=== PATIENT | male | born 1945 | race Caucasian/White ===

== ENCOUNTER 2019-06-19 10:44 | Observation (INO) | payer OTHER, MEDICARE ==
[2019-06-19 10:58] VITALS: BMI 31.1
--- NOTE | 2019-06-19 12:25 | PDOC ---
History of Present Illness - General Chief Complaint: Weakness Stated Complaint: NAUSEOUS/ VOMTITING/LOGAN/WEAKNESS, HAD CP Time Seen by Provider: 06/19/19 12:25 Past History - Past Medical History Allergies/Adverse Reactions: Allergies Allergy/AdvReac Type Severity Reaction Status Date / Time No Known Allergies Allergy Verified 06/19/19 10:58 Home Medications: Ambulatory Orders Atorvastatin Ca [Lipitor] 10 mg PO DAILY 02/18/15 Losartan Potassium 25 mg PO DAILY 09/10/16 Warfarin Sodium 2.5 mg PO DAILY #0 09/11/16 Anemia: No Asthma: No Cancer: No Cardiac Disorders: Yes (pacemaker) CVA: No COPD: No CHF: No Dementia: No Diabetes: No GI Disorders: Yes (tumor) Disorders: Yes (BPH) HTN: Yes Hypercholesterolemia: Yes Liver Disease: No Seizures: No Thyroid Disease: No Other medical history: aneurism - Surgical History Abdominal Surgery: No (colon tumor removed, aneurism) Appendectomy: No Cardiac Surgery: Yes (PACEMAKER INSERTION) Cholecystectomy: No Lung Surgery: No Neurologic Surgery: No Orthopedic Surgery: No - Suicide/Smoking/Psychosocial Hx Smoking Status: No Smoking History: Never smoked Have you smoked in the past 12 months: No Number of Cigarettes Smoked Daily: 0 Information on smoking cessation initiated: No Hx Alcohol Use: No Drug/Substance Use Hx: No Substance Use Type: None Hx Substance Use Treatment: No *Physical Exam - Vital Signs Last Vital Signs Temp Pulse Resp BP Pulse Ox 98.3 F 61 19 147/77 97 06/19/19 10:54 06/19/19 10:54 06/19/19 10:54 06/19/19 10:54 06/19/19 10:54 ED Treatment Course - LABORATORY CBC & Chemistry Diagram: 06/19/19 12:40 06/19/19 12:40 Medical Decision Making - Medical Decision Making 06/19/19 13:22 HPI 73 year old man with a history of BPH, pacemaker, AAA and HLD who presents with 20min episode of dizziness and 2 episodes of nbnb vomiting that occurred at 1000 while sitting on a couch and with spontaneous resolution. The patient has had this same episode of dizziness several months and was evaluated by PCP Dr. Blake without significant findings. The patient had some muscle cramping two days ago but denies any chest pain, shortness of breath, fever, recent illness, abdominal pain, diarrhea or constipation. The patient denies any changes in hearing or vision. At bedside he denies any current dizziness or nausea. He has no other complaints. PMHX: as in hPI Meds: coumadin, (cannot name cholesterol med) ROS GENERAL/CONSTITUTIONAL: No fever or chills. No weakness. HEAD, EYES, EARS, NOSE AND THROAT: No change in vision. No ear pain or discharge. No sore throat. CARDIOVASCULAR: No chest pain or shortness of breath RESPIRATORY: No cough, wheezing, or hemoptysis. GASTROINTESTINAL: No nausea, vomiting, diarrhea or constipation. GENITOURINARY: No dysuria, frequency, or change in urination. MUSCULOSKELETAL: No joint or muscle swelling or pain. No neck or back pain. SKIN: No rash NEUROLOGIC: No headache, vertigo, loss of consciousness, or change in strength/ sensation. ENDOCRINE: No increased thirst. No abnormal weight change HEMATOLOGIC/LYMPHATIC: No anemia, easy bleeding, or history of blood clots. ALLERGIC/IMMUNOLOGIC: No hives or skin allergy. PE GENERAL: Awake, alert, and fully oriented, in no acute distress HEAD: No signs of trauma, normocephalic, atraumatic EYES: PERRLA, EOMI, sclera anicteric, conjunctiva clear ENT: Auricles normal inspection, hearing grossly normal, nares patent, oropharynx clear without exudates. Moist mucosa NECK: Normal ROM, supple, no lymphadenopathy, JVD, or masses LUNGS: No distress, speaks full sentences, clear to auscultation bilaterally HEART: Regular rate and rhythm, normal S1 and S2, no murmurs, rubs or gallops, peripheral pulses normal and equal bilaterally. ABDOMEN: Soft, nontender, normoactive bowel sounds. No guarding, no rebound. No masses EXTREMITIES : Normal inspection, Normal range of motion, no edema. No clubbing or cyanosis. NEUROLOGICAL: Cranial nerves II through XII grossly intact. Normal speech, normal gait, no focal sensorimotor deficits SKIN: Warm, Dry, normal turgor, no rashes or lesions noted MDM 73 year old man with a history of BPH, pacemaker, AAA and HLD who presents with 20min episode of dizziness and 2 episodes of nbnb vomiting that occurred at 1000 while sitting on a couch and with spontaneous resolution. DDX including but not limited to: peripheral vs central vertigo vs intracranial pathology r/o acs W/U: - cbc, cmp, trop, ekg, cxr, head ct TX: - ivf ED Course: Head CT: no acute intracranial hemorrhage, well demarcated hypodense cortical infarct in the posterior aspect of the R cerebellum likely chronic or subacute in nature. labs-wnl CXR: w/o acute process Case discussed with Neurology Patient has pacemaker contraindication for MRI, will need admission for CTA of head and neck Plan for admission Sarnaya Reinoso, PGY2 Emergency Medicine *DC/Admit/Observation/Transfer Diagnosis at time of Disposition: CVA (cerebral vascular accident) - Referrals - Patient Instructions - Post Discharge Activity
[2019-06-19] MEDS ORDERED: SODIUM CHLORIDE 1,000 ML IV SCH (12:30)
[2019-06-19 12:56] LABS: BASO % 0.3 % (0-2.0); EOS % 0.6 % (0-4.5); HEMATOCRIT 45.2 % (35.4-49); HEMOGLOBIN 15.7 GM/dL (11.7-16.9); LYMPH % 10.8 % (8-40); MCH 32.6 pg (25.7-33.7); MCHC 34.7 g/dl (32.0-35.9); MEAN CELL VOLUME 94.1 fl (80-96); MEAN PLT VOLUME 7.9 fl (7.5-11.1); MONO % 5.3 % (3.8-10.2); RBC 4.81 M/mm3 (4.00-5.60); RDW 14.1 % (11.9-15.9); WHITE BLOOD COUNT 7.5 K/mm3 (4.0-10.0)
[2019-06-19 13:05] LABS: PLATELET COUNT 141 K/MM3 (134-434)
[2019-06-19 13:34] LABS: ALBUMIN 3.8 g/dl (3.4-5.0); BILIRUBIN,TOTAL 0.7 mg/dL (0.2-1); BLOOD UREA NITROGEN 20.3 mg/dL (7-18); CALCIUM 9.1 mg/dL (8.5-10.1); CREATININE 1.1 mg/dL (0.55-1.3); POTASSIUM 4.4 mmol/L (3.5-5.1); TOT PROT 7.5 g/dl (6.4-8.2)
[2019-06-19] MEDS ORDERED: IPRATROPIUM BR 0.02% 0.5 MG/2.5 ML VIAL.NEB. NEB ONE (14:39)
[2019-06-19] MEDS ORDERED: ASPIRIN 81 MG CHEWABLE TABLETS PO ONE (15:23)
[2019-06-19] MEDS ORDERED: ATORVASTATIN CA 40 MG TABLET (FP) PO ONE (15:23)
--- NOTE | 2019-06-19 15:41 | HP ---
Admitting History and Physical - Admission Chief Complaint: 73 y.o M was admitted to [facility] after vomiting, generalized weakness, dizziness. CT head documented chronic vs subacute cerebellar infarct and the patient was admitted for further nanagement History Source: Patient Limitations to Obtaining History: No Limitations - Past Medical History INSTRUMENT AND ELECTRICAL TECHNICIAN: Yes: Peripheral Neuropathy, Vertigo Cardiovascular: Yes: AFIB, Aneurysm, HTN, Other (PPM) Pulmonary: No: Asthma, Bronchitis, COPD, O2 Dependent Gastrointestinal: Yes: Constipation Renal/: Yes: Renal Inusuff Infectious Disease: No: AIDS, C-Diff, Herpes Zoster, HIV, MRSA, STD's, Tuberculosis, VREF, Other Psych: No: Addictions, Anxiety, Bipolar, Depression, Panic, Psychosis, Schizophrenia, Other Musculoskeletal: No: Bursitis, Chronic low back pain, Hemiparesis, Hemiplegia, Osteoarthritis, Paraplegia, Other Rheumatology: No: Fibromyalgia, Gout, Lupus, Rheumatoid Arthritis, Sarcoidosis, Vasculitis, Other Endocrine: No: [place]'s Disease, [place]'s Disease, Diabetes Insipidus, Diabetes Mellitus, Hyperparathyroidism, Hyperthyroidism, Hypothyroidism, Osteopenia, SIADH, Other - Past Surgical History Past Surgical History: Yes: AAA Repair, Colectomy (colon mass), Hernia Repair ( umbilical), Permanent Pacemaker Additional Past Surgical History: Colonoscopy/EGD 2015 - Smoking History Smoking history: Never smoked Have you smoked in the past 12 months: No Aproximately how many cigarettes per day: 0 - Alcohol/Substance Use Hx Alcohol Use: No Home Medications - Allergies Allergies/Adverse Reactions: Allergies Allergy/AdvReac Type Severity Reaction Status Date / Time No Known Allergies Allergy Verified 06/19/19 10:58 - Home Medications Home Medications: Ambulatory Orders Atorvastatin Ca [Lipitor] 10 mg PO DAILY 02/18/15 Losartan Potassium 25 mg PO DAILY 09/10/16 Warfarin Sodium 2.5 mg PO DAILY #0 09/11/16 Family Disease History - Family Disease History Family History: Unremarkable Review of Systems - Review of Systems Constitutional: denies: Chills, Diaphoresis, Fever, Lethargy, Loss of Appetite, Night Sweats, Unintentional Wgt. Loss Eyes: reports: No Symptoms HENT: reports: No Symptoms Neck: reports: No Symptoms Cardiovascular: reports: No Symptoms. denies: Chest Pain Respiratory: reports: No Symptoms Gastrointestinal: reports: Constipation. denies: Abdominal Pain Genitourinary: reports: No Symptoms Breasts: reports: No Symptoms Reported Musculoskeletal: reports: No Symptoms Integumentary: reports: No Symptoms Neurological: reports: Dizziness. denies: Change in LOC, Change in Speech, Confusion, Seizure Endocrine: reports: No Symptoms Hematology/Lymphatic: reports: No Symptoms Psychiatric: reports: No Symptoms Pain Intensity: 0 Physical Examination Vital Signs: Vital Signs Temperature 98.3 F 06/19/19 10:54 Pulse Rate 61 06/19/19 10:54 Respiratory Rate 19 06/19/19 10:54 Blood Pressure 147/77 06/19/19 10:54 O2 Sat by Pulse Oximetry (%) 97 06/19/19 10:54 Constitutional: Yes: Well Nourished, Anxious, Mild Distress Eyes: Yes: Conjunctiva Clear, EOM Intact HENT: Yes: Atraumatic, Normocephalic. No: Drooling Neck: Yes: Supple, Trachea Midline Cardiovascular: Yes: Regular Rate and Rhythm, S1, S2, Other (Left chest PPM). No: JVD Respiratory: Yes: Regular, CTA Bilaterally. No: SOB Gastrointestinal: Yes: Normal Bowel Sounds, Soft, Abdomen, Obese. No: Ascites, Distention, Palpable Mass, Pulsatile Mass, Tenderness, Tenderness, Epigastrium, Tenderness, Rebound ...Rectal Exam: Yes: Deferred Renal/: Yes: WNL. No: Anuria Breast(s): Yes: WNL Musculoskeletal: Yes: WNL Extremities: Yes: WNL Edema: No Peripheral Pulses WNL: Yes Integumentary: Yes: WNL Neurological: Yes: WNL, Alert, Oriented. 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 Assessment/Plan: CT noted Neurology consult Observe MRI can be contraindicated dueto PPM Code(s): I63.441 - CEREBRAL INFARCTION DUE TO EMBOLISM OF RIGHT CEREBLR ARTERY (2) A-fib Assessment/Plan: Follow INR Continue Comadin ECHO Atorva Code(s): I48.91 - UNSPECIFIED ATRIAL FIBRILLATION Qualifiers: Atrial fibrillation type: chronic Qualified Code(s): I48.2 - Chronic atrial fibrillation (3) Constipation Assessment/Plan: Citroma today Miralax BID Code(s): K59.00 - CONSTIPATION, UNSPECIFIED Qualifiers: Constipation type: slow transit constipation Qualified Code(s): K59.01 - Slow transit constipation
--- NOTE | 2019-06-19 15:46 | PDOC ---
Documentation entered by Sally Ashton SCRIBE, acting as scribe for Jose Boyd MD. Jose Boyd MD: This documentation has been prepared by the Poli mcrae Xhesika, SCRIBE, under my direction and personally reviewed by me in its entirety. I confirm that the documentation accurately reflects all work, treatment, procedures, and medical decision making performed by me. Attending Attestation - Resident Resident Name: Saranya Reinoso - ED Attending Attestation I have performed the following: I have examined & evaluated the patient, The case was reviewed & discussed with the resident, I agree w/resident's findings & plan, Exceptions are as noted - HPI HPI: 06/19/19 14:08 The patient is a 73 year old male with a significant PMH of BPH, pacemaker, AAA and HTN who presents to the emergency department with dizziness that lasted for 20 minutes. Patient notes she endorsed 2 episode of nbnb vomiting at 10am while sitting on the couch. Pt notes he endorsed similar episodes in the past, as recently as 2d ago. Was evaluated with Dr. Toledo reportedly with no findings. The patient denies chest pain, shortness of breath, headache. Denies fever, chills, cough, nausea, diarrhea and constipation. Denies dysuria, frequency, urgency and hematuria. Allergies: NKDA Past surgical history: pacemaker, endoscopy (polyps) PCP: Dr. Camacho Toledo - Physicial Exam PE: 06/19/19 15:19 vss alert lying in stretcher, speaking clearly irregular with normal rate lungs clear perrl, eomi. cn intact. 5/5 motor x4, fnf intact, no pd, wide based gait, negative romberg -- see nihss - Medical Decision Making 06/19/19 15:21 73-year-old male with risk factors for TIA/CVA presents with stuttering dizziness/vertigo and gait instability, similar to past episodes. On arrival here, vital signs are normal and NIH is 0, but there is a deviation from baseline gait. Presentation most concerning for cerebellar TIA/CVA. Stroke protocol initiated CT confirms subacute versus chronic cerebellar lesion, consistent with patient' s presenting symptoms Has pacemaker contraindications MRI, we'll perform CTA of the head and neck Neurology consult, admit to stroke unit under Dr. Toledo Aspirin, anticholesterol meds Heart Score/ECG Review #1 ECG reviewed & interpreted by me at: 10:56 06/19/19 15:45 v-paced at 66. no secondary sign of acute ischemic change NIH Stroke Scale - Last Known Well Date/Time & Onset Date Last Known Well: 06/19/19 Time Last Known Well: 10:00 - Initial Evaluation Level of consciousness: Alert Ask patient the month and their age: Answers both correctly Ask patient to open & close eyes; make fist and let go: Obeys both correctly Best gaze (horizontal eye movement): Normal Visual field testing: No visual field loss Facial paresis (Show teeth/raise eyebrows/close eyes tight): Normal symmetrical movement Motor Function: Left Arm: Normal Motor Function: Right Arm: Normal (extends arm 90 (or 45) degrees for 10 seconds without drift Motor Function: Left Leg: Normal (extends leg 30 degrees for 5 seconds without drift) Motor Function: Right Leg: Normal (extends leg 30 degrees for 5 seconds without drift) Limb Ataxia: No ataxia Sensory(Use pinprick test arms,legs,trunk,face/side to side): Normal Best language (Describe picture, name items, read sentences): No Aphasia Dysarthria (read several words): Normal articulation Extinction and Inattention: No abnormality - Total Score NIH Stroke Scale Score: 0
[2019-06-19] MEDS ORDERED: MAGNESIUM CITRATE 300 ML BOTTLE PO ONE (15:54)
[2019-06-19] MEDS ORDERED: ASPIRIN 81 MG CHEWABLE TABLETS ONE (16:02)
[2019-06-19] MEDS ORDERED: ATORVASTATIN CA 40 MG TABLET (FP) ONE (16:03)
[2019-06-19 17:19] LABS: URINE APPEARANCE CLEAR; URINE BILIRUBIN NEGATIVE (NEGATIVE); URINE COLOR YELLOW; URINE GLUCOSE (UA) NEGATIVE (NEGATIVE); URINE KETONE 1+ (NEGATIVE); URINE LEUK ESTERASE NEGATIVE (NEGATIVE); URINE NITRITE NEGATIVE (NEGATIVE); URINE PROTEIN NEGATIVE (NEGATIVE); URINE UROBILINOGEN 0.2 mg/dL (0.2-1.0)
--- NOTE | 2019-06-19 18:43 | CON.NEURO ---
Consult - Past Medical History BANDSAW OPERATOR: Yes: Peripheral Neuropathy, Vertigo Cardio/Vascular: Yes: AFIB, Aneurysm, HTN, Other (PPM) Pulmonary: No: Asthma, Bronchitis, COPD, O2 Dependent Gastrointestinal: Yes: Constipation Renal/: Yes: Renal Inusuff Infectious Disease: No: AIDS, C-Diff, Herpes Zoster, HIV, MRSA, STD's, Tuberculosis, VREF, Other Psych: No: Addictions, Anxiety, Bipolar, Depression, Panic, Psychosis, Schizophrenia, Other Musculoskeletal: No: Bursitis, Chronic low back pain, Hemiparesis, Hemiplegia, Osteoarthritis, Paraplegia, Other Rheumatology: No: Fibromyalgia, Gout, Lupus, Rheumatoid Arthritis, Sarcoidosis, Vasculitis, Other Endocrine: No: [place]'s Disease, [place]'s Disease, Diabetes Insipidus, Diabetes Mellitus, Hyperparathyroidism, Hyperthyroidism, Hypothyroidism, Osteopenia, SIADH, Other - Past Surgical History Past Surgical History: Yes: AAA Repair, Colectomy (colon mass), Hernia Repair ( umbilical), Permanent Pacemaker - Alcohol/Substance Use Hx Alcohol Use: No - Smoking History Smoking history: Never smoked Have you smoked in the past 12 months: No Aproximately how many cigarettes per day: 0 Home Medications - Allergies Allergies/Adverse Reactions: Allergies Allergy/AdvReac Type Severity Reaction Status Date / Time No Known Allergies Allergy Verified 06/19/19 10:58 - Home Medications Home Medications: Ambulatory Orders Atorvastatin Ca [Lipitor] 10 mg PO DAILY 02/18/15 Losartan Potassium 25 mg PO DAILY 09/10/16 Warfarin Sodium 2.5 mg PO DAILY #0 09/11/16 Physical Exam-Neuro Vital Signs: Vital Signs Temperature 97.6 F 06/19/19 18:13 Pulse Rate 71 06/19/19 18:13 Respiratory Rate 18 06/19/19 18:13 Blood Pressure 132/72 06/19/19 18:13 O2 Sat by Pulse Oximetry (%) 98 06/19/19 18:13 Labs: CBC, BMP 06/19/19 12:40 06/19/19 12:40 Assessment/Plan cc Feeling of vertigo and ct head showed there is subacute to chronic HPI 73 year old male history of BPH, Pacemaker, AAA repair, HLD. He has episode of feeling of vertigo sensation and patient come to ed. He has similar episode in past. He denies any focal neurological symptoms. He has ct head and showed old right cerebellar ischemic lesion. He did have cta of neck andbrain and it is uremarkable. Patient denies any focal neurological symptoms. His symptoms seems to be resolved. PMH as above, Atrial fibrillation, htn hld Neuropathy Past Surgical History: Yes: AAA Repair, Colectomy (colon mass), Hernia Repair ( umbilical), Permanent Pacemaker Additional Past Surgical History: Colonoscopy/EGD 2015 Social History, ROS, FH reviewed in past Allergies/Adverse Reactions: Allergies Allergy/AdvReac Type Severity Reaction Status Date / Time No Known Allergies Allergy Verified 06/19/19 10:58 Home Medications: Atorvastatin Ca [Lipitor] 10 mg PO DAILY 02/18/15 Losartan Potassium 25 mg PO DAILY 09/10/16 Warfarin Sodium 2.5 mg PO DAILY #0 09/11/16 NEUROLOGICAL EXAMINATION Alert oriented x 3, neck is supple and speech is noraml eomi, pupils reactive, no face asymmetry motor 5/5 all ext, ftn right shoulder restriction of movement due to osteoarthritis no nystagmus seen, ftn in both upper extremity is normal sensation is normal ct head showed old cerebellar ischemic stroke cant have mri of brain due to pacemaker Assessment/Plan transient vertigo feeling, neuro exam is normal, mri of brain cant be done. I suggest to repeat ct head, if there is no interval change. CT findings could be old/silent ischemic lesion Plan: PT, and continue coumadin and statin - repeat ct head - there is worsening ischemic lesion than further work up , otherwise patient can be discharged after repeat ct head - cta of brain and neck done, would follow up on results Thanking you so much Dionisio Avendano md
[2019-06-19 18:50] LABS: INR 2.55 (0.83-1.09); PROTHROMBIN TIME (PATIENT) 30.4 SEC (9.7-13.0)
[2019-06-19] MEDS ORDERED: ATORVASTATIN CA 10 MG TABLET (FP) ONE (20:02)
[2019-06-19] MEDS ORDERED: ATORVASTATIN CA 10 MG TABLET (FP) PO SCH (22:00)
[2019-06-19] MEDS ORDERED: POLYETHYLENE GLYCOL 3350 119 GM BTL PO SCH (22:00)
[2019-06-20 07:05] LABS: BASO % 0.6 % (0-2.0); EOS % 2.1 % (0-4.5); HEMATOCRIT 43.7 % (35.4-49); HEMOGLOBIN 15.2 GM/dL (11.7-16.9); LYMPH % 30.8 % (8-40); MCH 32.5 pg (25.7-33.7); MCHC 34.8 g/dl (32.0-35.9); MEAN CELL VOLUME 93.3 fl (80-96); MEAN PLT VOLUME 8.2 fl (7.5-11.1); MONO % 7.6 % (3.8-10.2); NEUT % 58.9 % (42.8-82.8); PLATELET COUNT 138 K/MM3 (134-434); RBC 4.69 M/mm3 (4.00-5.60); RDW 13.8 % (11.9-15.9); WHITE BLOOD COUNT 6.5 K/mm3 (4.0-10.0)
[2019-06-20 07:38] LABS: ALBUMIN 3.4 g/dl (3.4-5.0); BLOOD UREA NITROGEN 22.8 mg/dL (7-18); POTASSIUM 4.5 mmol/L (3.5-5.1); TOT PROT 6.8 g/dl (6.4-8.2)
--- NOTE | 2019-06-20 09:38 | ECHO ---
Version: 1 Name: SINAN OLIVA Exam: Adult Echocardiogram Study Date: 06/20/2019, 7:56 AM Age: 73 Years MMode/2D Measurements & Calculations IVSd: 1.09 cm LVIDs: 3.8 cm LVIDd: 4.6 cm LVPWd: 1.98 cm ACS: 2.04 cm LA dimension: 5.0 cm LVOT diam: 2.09 cm Doppler Measurements & Calculations MV E max [place]: 88.4 cm/sec Med E/e': 10.3 MV A max [place]: 43.4 cm/sec Med Peak E' [place]: 8.6 cm/sec MV E/A: 2.03 Lat E/e': 10.1 Lat Peak E' [place]: 8.8 cm/sec Ao max P.3 mmHg LEXX(I,D): 1.21 cm Ao mean P.4 mmHg LV V1 mean: 55.7 cm/sec Ao V2 max: 195.5 cm/sec LV V1 mean P.51 mmHg TR max [place]: 361.1 cm/sec TR max P.3 mmHg Left Ventricle Moderately decreased LV function. The estimated EF is 38%. Abnormal diastolic compliance. Right Ventricle The right ventricle is normal in size and function. Atria LAE 5.0 cm. BARAK. Mitral Valve The mitral valve is normal in structure and function. There is trace mitral regurgitation. Tricuspid Valve The tricuspid valve is normal in structure and function. There is mild tricuspid regurgitation. PASP 38 mmHg. Aortic Valve Fibrocalcific changes to the aortic valve. Mild aortic stenosis. LEXX 1.22 cm. Pulmonic Valve The pulmonic valve is normal in structure and function. Great Vessels The aortic root is normal size. Pericardium/Pleura There is no pericardial effusion. Summary Statements Moderately decreased LV function. The estimated EF is 38% Abnormal diastolic compliance The right ventricle is normal in size and function. LAE 5.0 cm BARAK The mitral valve is normal in structure and function. There is trace mitral regurgitation. The tricuspid valve is normal in structure and function. There is mild tricuspid regurgitation. PASP 38 mmHg Fibrocalcific changes to the aortic valve. Mild aortic stenosis. LEXX 1.22 cm. The aortic root is normal size. Pacer wire is seen in the RA and RV. MD Ganesh Pascual 06/20/2019, 8:38 AM Ordering Physician: Camacho Toledo Performed By: Adia Hdez
--- NOTE | 2019-06-20 09:53 | PN ---
Progress Note (short form) - Note Progress Note: 73 year old male history of BPH, Pacemaker, AAA repair, HLD. He has episode of feeling of vertigo sensation and patient come to ed. He has similar episode in past. He denies any focal neurological symptoms. He has ct head and showed old right cerebellar ischemic lesion. He did have cta of neck andbrain and it is uremarkable. Patient denies any focal neurological symptoms. His symptoms seems to be resolved. Patient is feeling much better and ct head remain unchanged. His symptoms has resolved. P NEUROLOGICAL EXAMINATION Alert oriented x 3, neck is supple and speech is noraml eomi, pupils reactive, no face asymmetry motor 5/5 all ext, ftn right shoulder restriction of movement due to osteoarthritis no nystagmus seen, ftn in both upper extremity is normal sensation is normal ct head showed old cerebellar ischemic stroke cant have mri of brain due to pacemaker inr 2.55 Neck CTA and Head CTA are pending Assessment/Plan transient vertigo feeling, neuro exam is normal, mri of brain cant be done due to pacemaker repeat ct head unchanged, and old cerebellar ischemic lesion are old and asymptomatic Plan:continue coumadin and statin - repeat ct head results appreciated - no further work up needed, neck and Head CTA are pending Thanking you so much Dionisio Avendano md
[2019-06-20] MEDS ORDERED: WARFARIN NA 2.5 MG TABLET (FP) PO SCH ×2 (10:00→18:00)
--- NOTE | 2019-06-20 11:39 | PN ---
Progress Note (short form) - Note Progress Note: Observed in the ER No new complaints Repeated CT head-old right cerebellar infarct without change, CTA head and neck- negative Vital Signs (72 hours) 06/19/19 06/19/19 06/19/19 10:54 18:13 22:38 Temperature 98.3 F 97.6 F 98 F Pulse Rate 61 Pulse Rate [ 71 65 Right Radial] Respiratory 19 18 16 Rate Blood Pressure 147/77 Blood Pressure 132/72 99/58 L [Right Arm] O2 Sat by Pulse 97 98 96 Oximetry (%) 06/20/19 06/20/19 00:45 08:31 Temperature 97.8 F 98.3 F Pulse Rate Pulse Rate [ 67 67 Right Radial] Respiratory 18 Rate Blood Pressure Blood Pressure 142/86 133/77 [Right Arm] O2 Sat by Pulse 97 94 L Oximetry (%) EKG Rhythm of PPM,LBBB morphology Neuro consult appreciated Lungs clear Heart S1S2 regular Abdomen soft, NT Ext-no CCE Laboratory Results - last 24 hr 06/19/19 06/19/19 06/19/19 12:40 12:40 15:10 WBC 7.5 RBC 4.81 Hgb 15.7 Hct 45.2 MCV 94.1 MCH 32.6 MCHC 34.7 RDW 14.1 Plt Count 141 MPV 7.9 D Absolute Neuts (auto) 6.2 Neutrophils % 83.0 H Lymphocytes % 10.8 Monocytes % 5.3 Eosinophils % 0.6 Basophils % 0.3 Nucleated RBC % 0 PT with INR INR Sodium 138 Potassium 4.4 Chloride 105 Carbon Dioxide 27 Anion Gap 6 L BUN 20.3 H Creatinine 1.1 Est GFR (CKD-EPI)AfAm 76.24 Est GFR (CKD-EPI)NonAf 65.78 Random Glucose 85 Calcium 9.1 Total Bilirubin 0.7 AST 16 ALT 21 Alkaline Phosphatase 69 Troponin I 0.02 Total Protein 7.5 Albumin 3.8 Urine Color Yellow Urine Appearance Clear Urine pH 5.0 Ur Specific [place] 1.013 Urine Protein Negative Urine Glucose (UA) Negative Urine Ketones 1+ H Urine Blood Negative Urine Nitrite Negative Urine Bilirubin Negative Urine Urobilinogen 0.2 Ur Leukocyte Esterase Negative 06/19/19 06/20/19 06/20/19 15:54 06:37 06:37 WBC 6.5 RBC 4.69 Hgb 15.2 Hct 43.7 MCV 93.3 MCH 32.5 MCHC 34.8 RDW 13.8 Plt Count 138 MPV 8.2 Absolute Neuts (auto) 3.8 Neutrophils % 58.9 D Lymphocytes % 30.8 D Monocytes % 7.6 Eosinophils % 2.1 D Basophils % 0.6 Nucleated RBC % 0 PT with INR 30.40 H INR 2.55 H Sodium 142 Potassium 4.5 Chloride 108 H Carbon Dioxide 27 Anion Gap 7 L BUN 22.8 H Creatinine 1.0 Est GFR (CKD-EPI)AfAm 85.55 Est GFR (CKD-EPI)NonAf 73.82 Random Glucose 83 Calcium 9.0 Total Bilirubin 1.0 AST 16 ALT 19 Alkaline Phosphatase 61 Troponin I Total Protein 6.8 Albumin 3.4 Urine Color Urine Appearance Urine pH Ur Specific [place] Urine Protein Urine Glucose (UA) Urine Ketones Urine Blood Urine Nitrite Urine Bilirubin Urine Urobilinogen Ur Leukocyte Esterase Current Active Problems Problem Status Onset A-fib Acute CVA (cerebral vascular accident) Acute 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
--- NOTE | 2019-06-20 11:41 | DS ---
Physical Examination Vital Signs: Vital Signs Temperature 98.3 F 06/20/19 08:31 Pulse Rate 67 06/20/19 08:31 Respiratory Rate 18 06/20/19 00:45 Blood Pressure 133/77 06/20/19 08:31 O2 Sat by Pulse Oximetry (%) 94 L 06/20/19 08:31 Constitutional: Yes: No Distress, Anxious Eyes: Yes: Conjunctiva Clear, EOM Intact HENT: Yes: Atraumatic, Normocephalic Neck: Yes: Supple, Trachea Midline Cardiovascular: Yes: Regular Rate and Rhythm, Other (PPM) Respiratory: Yes: Regular, CTA Bilaterally Gastrointestinal: Yes: Normal Bowel Sounds, Soft, Abdomen, Obese ...Rectal Exam: Yes: Deferred Breast(s): Yes: WNL Musculoskeletal: Yes: WNL Extremities: Yes: WNL Edema: No Peripheral Pulses WNL: Yes Integumentary: Yes: WNL Neurological: Yes: Alert, Oriented. 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
[2019-06-20 11:45] VITALS: BP 152/91; PULSE 68; TEMP 98
--- NOTE | 2019-06-20 15:21 | EKG ---
Test Reason : Blood Pressure : / mmHG Vent. 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
== END 2019-06-20 11:50 | disposition home or self-care (01) ==
LOC: JER 10:44 → INTOOBSV 14:45 → UNDOADMOB 14:45 → JERBED 14:45
PROVIDERS: ADMIT Internal Medicine; ATTEND Internal Medicine
PROC: 3E0337Z Introduction of Electrolytic and Water Balance Substance into Peripheral Vein, Percutaneous Approach (ICD-10-PCS; principal; 2019-06-19)
DX: I63.441 Cerebral infarction due to embolism of right cerebellar artery (principal); I48.2 Chronic atrial fibrillation; K59.01 Slow transit constipation; I10 Essential (primary) hypertension; E78.5 Hyperlipidemia, unspecified; N40.0 Benign prostatic hyperplasia without lower urinary tract symptoms; G62.9 Polyneuropathy, unspecified; Z79.01 Long term (current) use of anticoagulants; Z76.89 Persons encountering health services in other specified circumstances; Z95.0 Presence of cardiac pacemaker
CPT/HCPCS: 36415; 70450-TC; 70496-TC; 70498-TC; 71045-TC-FY; 80053; 81003; 84484; 85025; 85610; 87086; 93005; 93010; 93306-TC; 99284-25; G0378; J7030